=== PATIENT | male | born 1965 | race Caucasian/White ===

== ENCOUNTER 2018-01-15 10:51 | Emergency (ER) | payer MEDICAID ==
[~2018-01-15] VITALS: Ht 170.2 cm; Wt 81.8 kg
[2018-01-15] MEDS ORDERED: HYDROCODONE/ACETAMINOPHEN 5-325 MG TABLET PO ONE (12:15)
[2018-01-15] MEDS ORDERED: LIDOCAINE HCL 1% 10 ML VIAL INJ ONE (12:15)
[2018-01-15] MEDS ORDERED: PERTUSS(ACELL),DIPH,TET VAC/PF 0.5 ML VIAL IM ONE (12:15)
[2018-01-15] MEDS ORDERED: CeFAZolin SODIUM 1 GM in DEXTROSE 5%-WATER 10 ML IV ONE (15:15)
[2018-01-15] MEDS ORDERED: CeFAZolin 1 GM/DEXTROSE 50 ML IV ONE (15:15)
[2018-01-15] MEDS ORDERED: ONDANSETRON HCL 4 MG/2 ML VIAL IVP ONE (15:30)
[2018-01-15 16:22] VITALS: BP 130/74
== END 2018-01-15 17:54 | disposition home or self-care (01) ==
LOC: EMS 11:06
DX: S61.012A Laceration without foreign body of left thumb without damage to nail, initial encounter (principal); W26.8XXA Contact with other sharp object(s), not elsewhere classified, initial encounter; Y93.89 Activity, other specified; Y92.89 Other specified places as the place of occurrence of the external cause; Y99.8 Other external cause status
CPT/HCPCS: 12001; 73140; 73200; 90715; 96365; 96375; 99284; J0690; J2405; J3490; J7060